=== PATIENT | male | born 1940 | race Caucasian/White ===

== ENCOUNTER → 2017-09-24 | Outpatient (CLI) | payer MEDICARE ==
[~2017-09-24] MED LIST: ACETAMINOPHEN-1 EAC1; ALBUTEROL2.5 MG/3 M IH; ASPIR 8181 MG PO; ATIVAN1 MG PO; CALCIUM PO; CENTRUM SILVER1 EAC2 PO; EFFEXOR XR75 MG PO; FLOMAX0.4 MG PO; GABAPENTIN 100100 MG PO; GABAPENTIN PO; GLUCOSAMINE HC500 MG PO; HYDROXYCHLOROQ200 M1 PO; IBUPROFEN 200200 M1 PO; LEVAQUIN 500 M500 M1 PO; LEVSIN0.125 MG PO; LEXAPRO 10 MG T10 M1 PO; METHOTREXATE 22.5 MG PO; METHYLPHENIDATE10 M1 PO; MIRTAZAPINE30 M1 PO; MOBIC15 MG PO; NEURONTIN 300300 M1 PO; NORCO 5-325 TA1 EACH PO; PAXIL10 MG; PERCOCET PO; PHENAZOPYRIDIN200 M2 PO; PREDNISONE 10 M10 MG PO; PREDNISONE 20 M20 M1 PO; PRIMIDONE50 MG PO; PROPRANOLOL 1010 M1 PO; PROTONIX40 M1 PO; PROZAC20 MG PO; RESTORIL15 MG PO; SENNA PO; TESSALON PERLE100 MG PO; TOPAMAX 25 MG T25 M1 PO; TRAMADOL 50 MG50 MG PO; UNICOMPLEX M TA1 TA1 PO; VICODIN 5-3001 EACH PO; WELLBUTRIN XL300 MG PO; ZOFRAN ODT4 MG PO; ZPAK PO; ZYPREXA 5 MG TAB5 M1 PO
== END ==
LOC: M.MRI 13:07
DX: G47.00 Insomnia, unspecified (principal); F41.9 Anxiety disorder, unspecified; K21.9 Gastro-esophageal reflux disease without esophagitis

== ENCOUNTER 2017-12-06 18:23 | Emergency (ER) | payer MEDICARE ==
[~2017-12-06] VITALS: Ht 177.8 cm; Wt 86.2 kg
[~2017-12-06 18:23] MED LIST changes: -CALCIUM PO; -LEVSIN0.125 MG PO; -LEXAPRO 10 MG T10 M1 PO; -METHYLPHENIDATE10 M1 PO; -NEURONTIN 300300 M1 PO; -NORCO 5-325 TA1 EACH PO; -PHENAZOPYRIDIN200 M2 PO; -PRIMIDONE50 MG PO; -PROPRANOLOL 1010 M1 PO; -PROZAC20 MG PO; -TOPAMAX 25 MG T25 M1 PO; -UNICOMPLEX M TA1 TA1 PO; -WELLBUTRIN XL300 MG PO; -ZYPREXA 5 MG TAB5 M1 PO
[2017-12-06] MEDS ORDERED: PROZAC20 MG PO (18:41)
[2017-12-06] MEDS ORDERED: PRIMIDONE50 MG PO (18:41)
[2017-12-06] MEDS ORDERED: NEURONTIN 300300 M1 PO (18:41)
[2017-12-06] MEDS ORDERED: WELLBUTRIN XL300 MG PO (18:41)
[2017-12-06] MEDS ORDERED: ZYPREXA 5 MG TAB5 M1 PO (18:42)
[2017-12-06 20:39] VITALS: BP 129/83
== END 2017-12-06 20:30 | disposition home or self-care (01) ==
LOC: M.ERS 18:23
DX: S22.32XA Fracture of one rib, left side, initial encounter for closed fracture (principal); Z77.22 Contact with and (suspected) exposure to environmental tobacco smoke (acute) (chronic); W18.39XA Other fall on same level, initial encounter; Y93.89 Activity, other specified; Y92.89 Other specified places as the place of occurrence of the external cause; Y99.8 Other external cause status

== ENCOUNTER → 2017-12-27 | Outpatient (CLI) | payer MEDICARE ==
[~2017-12-27] MED LIST changes: +CALCIUM PO; +LEVSIN0.125 MG PO; +LEXAPRO 10 MG T10 M1 PO; +METHYLPHENIDATE10 M1 PO; +NEURONTIN 300300 M1 PO; +NORCO 5-325 TA1 EACH PO; +PHENAZOPYRIDIN200 M2 PO; +PRIMIDONE50 MG PO; +PROPRANOLOL 1010 M1 PO; +PROZAC20 MG PO; +TOPAMAX 25 MG T25 M1 PO; +UNICOMPLEX M TA1 TA1 PO; +WELLBUTRIN XL300 MG PO; +ZYPREXA 5 MG TAB5 M1 PO
--- NOTE | 2017-12-27 15:26 | 2DMMODE ---
[place] [address] 2 D/M-MODE ECHOCARDIOGRAM Name: AB EASON Room: [facility]#: [id number] Admission: 12/27/17 Attend Phys: Butch Milligan Discharge: Date of : 44 Date of Service: 12/27/17 1526 Report #: [id number] THIS REPORT FOR: //name// APPROVED REPORT Study performed: 12/27/2017 14:17:01 EXAM: Comprehensive 2D, Doppler, and color-flow Echocardiogram Patient Location: Out-Patient Status: routine BSA: 2.07 HR: 75 bpm BP: 120/80 mmHg Other Information Study Quality: Good Indications Murmur 2D Dimensions LVEF(%): 56.77 (>50%) IVSd: 13.30 (7-11mm) LVOT Diam: 20.00 (18-24mm) LVDd: 36.25 mm PWd: 10.90 (7-11mm) Ascending Ao: 28.84 (22-36mm) LVDs: 25.71 (25-40mm) Aortic Root: 28.02 mm Cunningham's LVEF: 56.77 % Volumes Left Atrial Volume (Systole) LA ESV Index: 9.90 mL/m2 Aortic Valve AoV Peak Dimitri.: 0.98 m/s AO Peak Gr.: 3.82 mmHg LVOT Max P.79 mmHg AO Mean Gr.: 2.08 mmHg LVOT Mean P.83 mmHg LVOT Max V: 0.97 m/s AO V2 VTI: 17.69 cm LVOT Mean V: 0.62 m/s MARAH (VTI): 3.61 cm2 LVOT V1 VTI: 20.32 cm Mitral Valve E/A Ratio: 0.64 MV Decel. Time: 292.14 [place] [address] 2 D/M-MODE ECHOCARDIOGRAM Name: AB EASON Room: [facility]#: [id number] Admission: 12/27/17 Attend Phys: Butch Milligan Discharge: Date of : 44 Date of Service: 12/27/17 1526 Report #: [id number] MV E Max Dimitri.: 0.43 m/s MV PHT: 84.72 ms MVA (PHT): 2.60 cm2 TDI E/Lateral E': 6.14 E/Medial E': 6.14 Medial E' Dimitri.: 0.07 m/s Lateral E' Dimitri.: 0.07 m/s Pulmonary Valve PV Peak Dimitri.: 1.31 m/s PV Peak Gr.: 6.84 mmHg Tricuspid Valve TR Peak Gr.: 19.87 mmHg RVSP: 24.87 mmHg Left Ventricle The left ventricle is normal size. There is normal LV segmental wall motion. There is normal left ventricular wall thickness. Left ventricular systolic function is normal. The left ventricular ejection fraction is within the normal range. LVEF is 55-60%. Grade I - abnormal relaxation pattern. Right Ventricle The right ventricle is normal size. The right ventricular systolic function is normal. Atria The left atrium size is normal. The right atrium size is normal. Aortic Valve Aortic valve is mildly calcified. Mild aortic regurgitation. There is no aortic valvular stenosis. Mitral Valve The mitral valve is normal in structure. Mild mitral regurgitation. No evidence of mitral valve stenosis. Tricuspid Valve The tricuspid valve is normal in structure. Mild tricuspid regurgitation. The RVSP is 30_ mmHg. Pulmonic Valve The pulmonary valve is normal in structure. There is no pulmonic [place] [address] 2 D/M-MODE ECHOCARDIOGRAM Name: AB EASON [id number] Admission: 12/27/17 Attend Phys: Butch Milligan Discharge: Date of : 44 Date of Service: 12/27/17 1526 Report #: [id number] Great Vessels The aortic root is normal in size. IVC is normal in size and collapses with >50% inspiration Pericardium There is no pericardial effusion. <Conclusion> Aortic valve is mildly calcified. Mild mitral regurgitation. Mild aortic regurgitation. LVEF is 55-60%. <ELECTRONICALLY SIGNED> By: Cain Schaeffer MD, FACC 12/27/17 1526 1526 1526 Cain Schaeffer MD, FACC /INF
== END ==
LOC: M.CRD 13:29
DX: I08.3 Combined rheumatic disorders of mitral, aortic and tricuspid valves (principal); I70.0 Atherosclerosis of aorta

== ENCOUNTER → 2018-03-31 | Outpatient (CLI) | payer MEDICARE | LOC: M.ULTRA 12:26 | DX: M79.89 Other specified soft tissue disorders (principal); M79.661 Pain in right lower leg; M79.662 Pain in left lower leg ==

== ENCOUNTER 2018-05-13 09:03 | Inpatient (IN) | payer MEDICARE ==
[~2018-05-13] VITALS: Ht 177.8 cm; Wt 90.7 kg
[~2018-05-13 09:03] MED LIST changes: -CALCIUM PO; -LEVSIN0.125 MG PO; -LEXAPRO 10 MG T10 M1 PO; -METHYLPHENIDATE10 M1 PO; -NORCO 5-325 TA1 EACH PO; -PHENAZOPYRIDIN200 M2 PO; -PROPRANOLOL 1010 M1 PO; -TOPAMAX 25 MG T25 M1 PO; -UNICOMPLEX M TA1 TA1 PO
[2018-05-13 09:13] VITALS: BP 130/110
[2018-05-13 09:44] LABS: ABSOLUTE LYMPHOCYTES 1.4 thou/uL (0.8-5.3); ABSOLUTE MONOCYTES 0.9 thou/uL (0.0-1.2); ABSOLUTE NEUTROPHILS 7.2 thou/uL (1.6-8.1); BASOPHILS 0.4 %; EOSINOPHILS 0.2 %; HEMATOCRIT 46.2 % (42.0-52.0); HEMOGLOBIN 15.6 gm/dL (14.0-18.0); LYMPHOCYTES 14.2 %; MCH 31.6 pg (26.0-34.0); MCHC 33.9 g/dL (28.0-37.0); MCV 93.5 fL (80.0-100.0); MONOCYTES 9.9 %; NUCLEATED RBCS 0 /100WBC; PLATELET COUNT* 191 thou/uL (150-400); POLYS 75.3 %; RBC 4.94 mil/uL (4.50-6.00); RDW-CV 13.7 % (10.5-14.5); WBC 9.6 thou/uL (4.0-11.0)
[2018-05-13 09:45] LABS: URINE BILIRUBIN NEGATIVE (Negative); URINE BLOOD 1+ (Negative); URINE CLARITY CLEAR; URINE COLOR YELLOW; URINE GLUCOSE-RANDOM NEGATIVE (Negative); URINE KETONES NEGATIVE (Negative); URINE LEUKOCYTES-REFLEX NEGATIVE (Negative); URINE NITRITE-REFLEX NEGATIVE (Negative); URINE PROTEIN NEGATIVE (Negative); URINE UROBILINOGEN 0.2 E.U./dl (0.2-1.0)
[2018-05-13 09:56] LABS: ANION GAP 8 mmol/L (7-16); BUN 25 mg/dL (7-18); CALCIUM 9.7 mg/dL (8.5-10.1); CHLORIDE 106 mmol/L (98-107); CO2 27 mmol/L (21-32); CREATININE 2.2 mg/dL (0.6-1.3); GLUCOSE 151 mg/dL (70-99); POTASSIUM 3.8 mmol/L (3.5-5.1); SODIUM 141 mmol/L (136-145)
[2018-05-13] MEDS ORDERED: LEXAPRO 10 MG T10 M1 PO (09:59)
[2018-05-13] MEDS ORDERED: TOPAMAX 25 MG T25 M1 PO (10:01)
[2018-05-13 10:02] LABS: ALBUMIN 3.6 g/dL (3.4-5.0); ALKALINE PHOSPHATASE 68 U/L (46-116); LIPASE 259 U/L (73-393); SGOT 19 U/L (15-37); SGPT 30 U/L (30-65); TOTAL PROTEIN 6.8 g/dL (6.4-8.2); TROPONIN-I LEVEL <0.06 ng/mL (<0.06)
[2018-05-13] MEDS ORDERED: PROPRANOLOL 1010 M1 PO (10:02)
[2018-05-13] MEDS ORDERED: CALCIUM PO (10:03)
[2018-05-13] MEDS ORDERED: UNICOMPLEX M TA1 TA1 PO (10:03)
[2018-05-13] MEDS ORDERED: ASPIR 8181 MG PO (10:04)
[2018-05-13] MEDS ORDERED: METHYLPHENIDATE10 M1 PO (10:04)
[2018-05-13 14:13] VITALS: BP 137/83
--- NOTE | 2018-05-13 16:31 | EKG ---
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 DAVEY : 1940 Requested By: Rufino Matias Order Number: [id number] MD: Getachew Jain Measurements Intervals Ringle Rate: 87 P: 44 VT: 152 QRS: -37 QRSD: 99 T: 19 QT: 384 QTc: 462 Interpretive Statements Sinus rhythm Ventricular premature complex Left axis deviation Compared to ECG 05/28/2016 12:26:51 Ventricular premature complex(es) now present Electronically Signed On 05-13-2018 16:31:35 CDT by Getachew Jain [email or web address] <ELECTRONICALLY SIGNED> By: Getachew Jain MD, [facility] 05/13/18 1631 0914 Getachew Jain MD, [facility] /EPI
--- NOTE | 2018-05-13 18:05 | NUR ---
PATIENT ARRIVED TO THE UNIT AT APPROX 1500. ALERT AND ORIENTE X4. ADMISSION HISTORY AND ASSESSMENT COMPLETED AND CHARTED. VSS ON ROOM AIR. NO COMPLAINTS OF PAIN, NAUSEA, OR SOA. FLUIDS STARTED AND INFUSING ORDERED. URINAL AND STRAINER PLACED IN RESTROOM TO MONITOR FOR STONE. HOURLY ROUNDS MAINTAINED, CALL LIGHT WITHIN REACH, NURSING WILL CONTINUE TO MONITOR.
[2018-05-13 19:56] LABS: CALCIUM 9.4 mg/dL (8.5-10.1); CREATININE 2.4 mg/dL (0.6-1.3); POTASSIUM 3.9 mmol/L (3.5-5.1)
[2018-05-13 20:30] VITALS: BP 112/72
[2018-05-14 00:41] VITALS: BP 114/76
[2018-05-14 04:36] LABS: HEMATOCRIT 39.4 % (42.0-52.0); MCHC 34.1 g/dL (28.0-37.0); MCV 93.7 fL (80.0-100.0); MPV 7.2 fl. (7.2-11.1); RBC 4.2 mil/uL (4.50-6.00); RDW-CV 13.8 % (10.5-14.5)
[2018-05-14 04:49] LABS: ALBUMIN 2.8 g/dL (3.4-5.0); CALCIUM 8.5 mg/dL (8.5-10.1); CREATININE 2.4 mg/dL (0.6-1.3); POTASSIUM 4.3 mmol/L (3.5-5.1); TOTAL BILIRUBIN 0.7 mg/dL (<0.1-1.0); TOTAL PROTEIN 5.1 g/dL (6.4-8.2)
[2018-05-14 05:14] LABS: HEMOGLOBIN 13.4 gm/dL (14.0-18.0)
--- NOTE | 2018-05-14 08:14 | NUR ---
Alert and oriented x 4. Vitals are stable. He is up independently in his room. He was voiding and straining his urine himself. He has had nothing by mouth since midnight. He slept well.
[2018-05-14 08:30] VITALS: BP 128/80
--- NOTE | 2018-05-14 11:27 | NUR ---
PATIENT ARRIVED BACK TO UNIT FROM PACU AT 1120. VITAL SIGNS STABLE ON ROOM AIR. DENIES PAIN AND NAUSEA. REGULAR DIET STARTED. DRESSING TO PENIS/SCROTAL AREA C/D/I. RESTING COMFORTABLY. WILL CONTINUE HOURLY ROUNDS. CALL LIGHT WITHIN REACH. NURSING WILL CONTINUE TO MONITOR.
[2018-05-14 16:00] VITALS: BP 132/66
--- NOTE | 2018-05-14 17:19 | NUR ---
PATIENT ALERT AND ORIENTED X 4. VITAL SIGNS STABLE ON ROOM AIR. UP AD YOKASTA IN ROOM. IV PATENT WITH FLUIDS INFUSING. DENIES PAIN AND NAUSEA. PATIENT HAD CYSTOSCOPY TODAY WITH LEFT RETROGRADE PYELOGRAM & URETEROSCOPY WITH STONE EXTRACTION & STENT PLACEMENT. URINE IS BLOOD TINGED DUE TO PROCEDURE. VOIDING WITHOUT DIFFICULTY. HOURLY ROUNDS MAINTAINED THROUGHOUT THE SHIFT. CALL LIGHT WITHIN REACH. NURSING WILL CONTINUE TO MONITOR.
[2018-05-14 21:30] VITALS: BP 127/82
[2018-05-15 04:21] LABS: HEMATOCRIT 37.1 % (42.0-52.0); HEMOGLOBIN 12.7 gm/dL (14.0-18.0); MCHC 34.3 g/dL (28.0-37.0); MCV 93.4 fL (80.0-100.0); MPV 7.2 fl. (7.2-11.1); RBC 3.97 mil/uL (4.50-6.00); RDW-CV 14.1 % (10.5-14.5); WBC 5.4 thou/uL (4.0-11.0)
[2018-05-15 04:44] LABS: ALBUMIN 2.6 g/dL (3.4-5.0); CALCIUM 7.8 mg/dL (8.5-10.1); CREATININE 1.8 mg/dL (0.6-1.3); MAGNESIUM 1.9 mg/dL (1.8-2.4); POTASSIUM 3.9 mmol/L (3.5-5.1); TOTAL BILIRUBIN 0.4 mg/dL (<0.1-1.0); TOTAL PROTEIN 5.3 g/dL (6.4-8.2)
--- NOTE | 2018-05-15 08:31 | NUR ---
ALERT AND ORIENTED X4. DENIED NEED FOR PAIN MEDICATIONS. UP AD YOKASTA IN ROOM. URINE BROWN IN COLOR. PATIENT VOIDING WITHOUT DIFFICULTY. CONTINUE TO STRAIN ALL URINE. IVF INFUSING WITHOUT DIFFICULTY. CALL LIGHT WITHIN REACH.
--- NOTE | 2018-05-15 08:35 | CON ---
[address] [address] CONSULTATION Name: AB EASON Room: [address] IN ..#: [id number] Admission: 05/13/18 Attend Phys: Agapito Mendoza, Discharge: Date of : 44 Report #: [id number] THIS REPORT FOR: //name// CC: Agapito Mendoza Butch Wooo DATE OF SERVICE: 05/14/2018 NEPHROLOGY CONSULTATION CONSULTING PHYSICIAN: Dr. Mendoza. REASON FOR NEPHROLOGY CONSULTATION: Acute kidney injury. CHIEF COMPLAINT: Left lower quadrant and flank pain. HISTORY OF PRESENT ILLNESS: This is a very pleasant 77-year-old male who has past medical history of kidney stones. He takes Topamax for neuropathy and he states that he was started on that 5 months ago. He came in with left flank pain and left-sided abdominal pain. He denied any dysuria. Abdominal imaging showed evidence of a 3-mm left UPJ stone causing moderate obstructive uropathy with left-sided hydronephrosis and perinephric stranding. He also has bilateral stone burden, which were like small in nature. His creatinine was 1.1 in 2016, but creatinine at this time was 2.2 on admission and 2.4 this morning as well as rest of the evening. Urology has already seen him. He does take ibuprofen intermittently. He does not take any MARCIO inhibitor or ARB. He also had an episode of nausea and vomiting yesterday, but his symptoms are much better today. His urine output has not been documented. He is actually resting comfortably right now. ALLERGIES: No known drug allergies. REVIEW OF SYSTEMS: This is as mentioned in the history of present illness. He is currently not having any pain, nausea, vomiting or diarrhea. PAST MEDICAL HISTORY: Includes history of kidney stones in the past. He has neuropathy. He has history of psychosis, history of suicidal ideation and depression. PAST SURGICAL HISTORY: He denied any hip surgeries. FAMILY HISTORY: He denied any kidney disease in the family. He did say that his brother has history of kidney stones. SOCIAL HISTORY: He lives at home with his . Denies any use of tobacco, [place] [address] CONSULTATION Name: AB EASON Room: [address]#: [id number] Admission: 05/13/18 Attend Phys: Agapito Mendoza, Discharge: Date of : 44 Report #: [id number] HOME MEDICATIONS: Include Topamax 25 mg b.i.d., primidone, olanzapine, methotrexate, propranolol, aspirin 81, gabapentin, fluoxetine, bupropion, escitalopram, methylphenidate, lorazepam, multivitamins and calcium supplement. PHYSICAL EXAMINATION: VITAL SIGNS: Blood pressure is 114/76, respiratory rate is 18, pulse rate is 78, temperature 36.8 and pulse ox is 98% on room air. GENERAL: He is awake, alert and oriented x 3. HEAD, EYES, EARS, NOSE AND THROAT: Mucous membranes are moist. NECK: There is no JVD. CHEST: Clear to auscultation bilateral. No crackles or wheezing. CARDIOVASCULAR: S1, S2 normal. No murmurs, rubs or gallops. ABDOMEN: Soft, nondistended and nontender. Bowel sounds are present. BACK: He has no CVA tenderness. EXTREMITIES: Lower extremities, there is no edema. NEUROLOGICAL FUNCTION: Gross neurological function is intact. PSYCHIATRIC: Mood and affect seem to be normal. LABORATORY DATA: Hemoglobin 13.4, WBC 7.0. Creatinine 2.4, BUN 29, chloride 111 and sodium 144. Creatinine was 2.2 yesterday morning and other labs are reviewed. IMAGING: Chest x-ray, abdominal x-ray and abdominal and pelvic CT were reviewed. ASSESSMENT: 1. Acute kidney injury, likely because of obstructive uropathy. Baseline creatinine 1.1, but creatinine is now 2.4. U/A showed evidence of 1+ blood, but no protein. 2. Obstructive uropathy, left UPJ stone causing left hydronephrosis and perinephric stranding as well as bilateral stone burden. 3. History of neuropathy and takes Topamax for that. 4. History of psychosis and depression. PLAN: 1. Acute kidney injury is likely because of obstructive uropathy. I agree with Urology's plan for urological intervention for stone retrieval and possible stent placement. 2. Continue IV fluids with normal saline at 100 mL an hour. 3. Based upon his age and renal insufficiency, we will also check serum immunofixation and serum jodbi-dy-xgrmmu light chain ratio. 4. Agree with Neurology. Topamax causes increased stone burden and would recommend speaking with Neurology to see if Topamax can be tapered down to off. Thank you for the consultation. Please make sure [place] [address] CONSULTATION Name: AB EASON Room: [address] IN .R.#: [id number] Admission: 05/13/18 Attend Phys: Agapito Mendoza, Discharge: Date of : 44 Report #: [id number] documented. I discussed the plan with the patient as well as the patient's nurse and we will continue to follow with you. <ELECTRONICALLY SIGNED> By: Celina Munguia MD 05/15/18 0835 1340Celina Munguia MD /nt
[2018-05-15 09:41] VITALS: BP 126/75
--- NOTE | 2018-05-15 14:29 | OP ---
[address] [address] OPERATIVE REPORT Name: AB EASON Room: [address] IN .R.#: [id number] Admission: 05/13/18 Attend Phys: Agapito Mendoza, Discharge: Date of : 44 Report #: [id number] THIS REPORT FOR: //name// CC: Agapito Milligan DATE OF SERVICE: 05/14/2018 PREOPERATIVE DIAGNOSES: 1. Ureteral stone. 2. Renal stone. 3. Renal failure due to ureteral obstruction. POSTOPERATIVE DIAGNOSES: 1. Ureteral stone. 2. Renal stone. 3. Renal failure due to ureteral obstruction. PROCEDURE PERFORMED: Cystoscopy, left retrograde pyelogram, ureteroscopy, stone extraction and stent placement. SURGEON: Aaron Bonds MD. ANESTHESIA: General. ESTIMATED BLOOD LOSS: Minimal. COMPLICATIONS: None. INDICATION FOR PROCEDURE: This is a 77-year-old gentleman who was hospitalized for severe flank pain. He had a CT scan, which revealed a distal left ureteral stone, hydronephrosis and several renal stones. His creatinine was also elevated indicating some renal failure. His options for management were discussed in detail. He elected to proceed with cystoscopy, left retrograde pyelogram, ureteroscopy, laser lithotripsy and stent placement. The risks, benefits, possible complications were explained in detail to both he and his family. They voiced clear understanding and would like to proceed. DESCRIPTION OF PROCEDURE: After obtaining informed consent, the patient was taken to the operating room and placed in supine position. After adequate general anesthesia and IV antibiotics, he was prepped and draped in the dorsal lithotomy position. A 21-Spanish cystoscope with 30-degree lens was introduced into the anterior urethra, which was normal all the way down the prostatic urethra with moderate prostatic enlargement. Upon entering the bladder, the bladder was systematically inspected. There were no tumors or diverticula. There was a small 1-mm fragment of stone at the base. This [place] [address] OPERATIVE REPORT Name: AB EASON Room: [address] IN ..#: [id number] Admission: 05/13/18 Attend Phys: Agapito Mendoza, Discharge: Date of : 44 Report #: [id number] It did not appear to match the size of the stone in his ureter visualized on CT, so a left retrograde pyelogram was performed using an open-ended ureteral catheter. There was a very stenotic appearing intramural ureter with a significant amount of proximal hydroureter. There is a possible filling defect in the distal ureter, so a sensor guidewire was passed in retrograde fashion. In doing so hydronephrotic jet expelled another piece of stone. This was flushed out of the bladder. Rigid ureteroscopy was carried out alongside the wire. No visible stones were identified within the distal ureter. So, an access sheath was gently passed over the wire under fluoroscopic guidance. This was an 11 x 13-Spanish access sheath. It passed quite easily. A second wire was placed as a safety wire and flexible ureteroscopy was carried out up into the kidney. All the calices were inspected. There were 3 separate stones ranging from 2 mm to 4 mm. These were basketed and retrieved atraumatically through the dilated proximal ureter and access sheath. The remainder of the kidney was inspected. There were several small Juan Manuel's plaques, but no other stones within the collecting system. The access sheath was removed. The ureter was inspected with removal of the ureteroscope. There was no evidence of any ureteral injury. No evidence of any stones within the ureter. There was some edema in the distal ureter where the stone had been lodged. It was determined that a stent would be replaced. The cystoscope was placed in the bladder and a 4.8 x 28 cm double-J stent was passed in retrograde fashion. A good coil was noted overlying the renal pelvis. A good coil was directly visualized in the bladder. Bladder was drained. Uro-Jet was applied per urethra. The patient was extubated and taken to recovery room in good condition. The plan is to return his care to the floor and check his creatinine. When stable, he can discharge home and follow up in 1-2 weeks for stent removal. <ELECTRONICALLY SIGNED> By: Aaron Bonds MD 05/15/18 1429 1800 [id number] Bonds MD /susan
[2018-05-15 16:28] VITALS: BP 152/89
--- NOTE | 2018-05-15 16:57 | NUR ---
ASSUMED CARE OF PATIENT AFTER MORNING REPORT AT APPROX 0730. ALERT AND ORIENTED X4. ASSESSMENT COMPLETED AND CHARTED. VSS ON ROOM AIR. NO COMPLAINTS OF PAIN, NAUSEA, OR SOA. FLUIDS INFUSED ORDERED. PATIENT WAITING TO BE DISCHARGED, DR PARRY ORDERED NEURO CONSULT TO ADDRESS MEDICATION, NEPHROLOGY SUGGESTS TOMAMAX IS CAUSING KIDNEY STONES. PATIENT IN RECLINER WATCHIGN TV AT THIS TIME. HOURLY ROUNDS MAINTAINED, CALL LIGHT WITHIN REACH, NURSING WILL CONTINUE TO MONITOR.
[2018-05-15] MEDS ORDERED: NORCO 5-325 TA1 EACH PO (18:15)
[2018-05-15] MEDS ORDERED: LEVSIN0.125 MG PO (18:16)
[2018-05-15] MEDS ORDERED: PHENAZOPYRIDIN200 M2 PO (18:17)
[2018-05-15 18:46] VITALS: BP 152/89
--- NOTE | 2018-05-15 19:07 | NUR ---
PATIENT DISCHARGED AT 1900 WITH ALL PERSONAL BELONINGS, PRESCRIPTIONS, AND DISCHARGE INFORMATION.
[2018-05-15 21:08] LABS: IgA 165 mg/dL (61-437); IgG 715 mg/dL (700-1600); IgM 60 mg/dL (15-143)
[2018-05-16 12:05] LABS: KAPPA FREE LIGHT CHAINS 15.2 mg/L (3.3-19.4); LAMBDA FREE LIGHT CHAINS 18.7 mg/L (5.7-26.3)
--- NOTE | 2018-05-16 12:49 | CON ---
[address] [address] CONSULTATION Name: AB EASON Room: [address] IN ..#: [id number] Admission: 05/13/18 Attend Phys: Agapito Mendoza, Discharge: 05/15/18 Date of : 44 Report #: [id number] THIS REPORT FOR: //name// CC: Agapito Guardadozhou Chel DATE OF SERVICE: 05/13/2018 REFERRING PHYSICIAN: Dr. Mendoza. REASON FOR CONSULTATION: Left ureteral calculus and renal insufficiency. HISTORY OF PRESENT ILLNESS: This is a 77-year-old male who reports multiple stones in the past, but states they have not required procedures and have passed spontaneously. He denies previous urologic evaluation. He presented to the Emergency Department with a several-day history of left-sided abdominal and flank pain accompanied by nausea and vomiting. He denies fever or chills. He denies dysuria, gross hematuria or fragment passage. Denies hesitancy, slow stream or incomplete emptying. He denies any other recent illness. CT scan revealed a 3 mm left ureterovesical junction stone and lab revealed a creatinine of 2.2. He was admitted for further evaluation and management as well as hydration and Urology was consulted. PAST MEDICAL HISTORY: As above. The patient also has a history of depression and reported history of psychosis and suicidal ideation, though he denies these. ALLERGIES: No known drug allergies. MEDICATIONS: List is reviewed and includes Topamax. FAMILY HISTORY: He does not know of any family history of renal disease or stones. SOCIAL HISTORY: He denies use of tobacco or alcohol. REVIEW OF SYSTEMS: As per the history of present illness. He denies cough, shortness of breath, chest pain. 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 He is unsure of details regarding that. PHYSICAL EXAMINATION: VITAL SIGNS: Temperature 36.9, pulse 66, respirations 16, blood pressure 137/83. GENERAL: This is a 77-year-old male in no acute distress. He is awake, alert and answers questions appropriately. HEENT: Normocephalic, atraumatic. He has amblyopia. Oropharynx is clear. NECK: Supple[place] [address] CONSULTATION Name: EASONAB Nish Room: [address]#: [id number] Admission: 05/13/18 Attend Phys: Agapito Mendoza, Discharge: 05/15/18 Date of : 44 Report #: [id number] RESPIRATORY: Effort and excursion are normal. CARDIOVASCULAR: Rhythm is regular. Radial pulses are palpable. CHEST: Chest wall is nontender. ABDOMEN: Soft, nontender, nondistended. Spine and costovertebral angles are nontender. Bladder is nontender and nonpalpable. EXTREMITIES: Warm. Moves all extremities well. No peripheral edema. Radial pulses are palpable. GENITOURINARY: Reveals normal skin of the penis and scrotum. Urethral meatus is orthotopic. Left testicle is somewhat atrophic with no palpable masses. 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 No palpable inguinal hernias. LABORATORY DATA: Include a white count of 9.6, hemoglobin 15.6, platelet count 191,000. Sodium 141, potassium 3.8, chloride 106, CO2 of 27, BUN 25, creatinine 2.2, glucose 131. IMAGING: Noncontrast CT scan of the abdomen and pelvis reveals bilateral nonobstructing renal calculi and a 3 mm left ureterovesical junction calculus with hydronephrosis. Dipstick urinalysis reveals 1+ blood. It is otherwise unremarkable. I have ordered a urine culture. CT images were reviewed. Findings were discussed in detail with the patient and his . IMPRESSION: 1. Left distal ureteral calculus, bilateral renal calculi. 2. Renal insufficiency with creatinine of 2.2. ASSESSMENT AND PLAN: We discussed alternatives for management including medical expulsive therapy, outpatient extracorporeal shockwave lithotripsy, cystoscopy with retrograde pyelogram and stent placement as well as possible ureteroscopic stone manipulation. We discussed the implications of his elevated creatinine. I would recommend avoiding nephrotoxins such as Toradol. We will add Flomax. Strain urine for stones. Check a urine culture. Check KUB and chest x-ray. Repeat a BMP in the morning. The patient has eaten recently and will be made n.p.o. after midnight in case intervention is needed. Consider Neurology evaluation regarding stopping Topamax due to its association with increased stone risk. We will follow along. <ELECTRONICALLY SIGNED> By: Getachew Garcia MD 05/16/18 1249 1744 [id number] Garcia MD /susan
[2018-05-23 17:11] LABS: STONE CA OXALATE DIHYDRATE 35 % (()); STONE CA OXALATE MONOHYDRATE 55 % (()); STONE CALCIUM PHOSPHATE 10 % (()); STONE COLOR Tan (()); STONE WEIGHT 37.6 mg (())
== END 2018-05-15 19:00 | disposition home or self-care (01) | DRG 659 ==
LOC: M.ERS 09:03 → M.TBA-ER 12:18 → M.ORTHSURG 12:18
PROVIDERS: Family Medicine; Urology; ADMIT Family Medicine
DX: N13.2 Hydronephrosis with renal and ureteral calculous obstruction (principal); E43 Unspecified severe protein-calorie malnutrition; N13.0 Hydronephrosis with ureteropelvic junction obstruction; K21.9 Gastro-esophageal reflux disease without esophagitis; N17.0 Acute kidney failure with tubular necrosis; Z77.22 Contact with and (suspected) exposure to environmental tobacco smoke (acute) (chronic); F32.9 Major depressive disorder, single episode, unspecified; F41.9 Anxiety disorder, unspecified; G62.9 Polyneuropathy, unspecified; Z98.41 Cataract extraction status, right eye; Z82.49 Family history of ischemic heart disease and other diseases of the circulatory system; Z84.1 Family history of disorders of kidney and ureter; Z28.21 Immunization not carried out because of patient refusal

== ENCOUNTER 2018-05-17 16:06 | Inpatient (IN) | payer MEDICARE ==
[~2018-05-17] VITALS: Ht 177.8 cm; Wt 81.6 kg
[~2018-05-17 16:06] MED LIST changes: +CALCIUM PO; +LEVSIN0.125 MG PO; +LEXAPRO 10 MG T10 M1 PO; +METHYLPHENIDATE10 M1 PO; +NORCO 5-325 TA1 EACH PO; +PHENAZOPYRIDIN200 M2 PO; +PROPRANOLOL 1010 M1 PO; +TOPAMAX 25 MG T25 M1 PO; +UNICOMPLEX M TA1 TA1 PO
[2018-05-17 16:18] VITALS: BP 119/82
[2018-05-17 16:39] LABS: ABSOLUTE EOSINOPHILS 0.3 thou/uL (0.0-0.7); ABSOLUTE LYMPHOCYTES 1.9 thou/uL (0.8-5.3); ABSOLUTE MONOCYTES 0.6 thou/uL (0.0-1.2); ABSOLUTE NEUTROPHILS 2.8 thou/uL (1.6-8.1); BASOPHILS 0.8 %; EOSINOPHILS 5.6 %; HEMATOCRIT 41.3 % (42.0-52.0); HEMOGLOBIN 14.1 gm/dL (14.0-18.0); LYMPHOCYTES 33.5 %; MCH 31.8 pg (26.0-34.0); MCV 93.5 fL (80.0-100.0); MONOCYTES 10.1 %; MPV 7.2 fl. (7.2-11.1); NUCLEATED RBCS 0 /100WBC; PLATELET COUNT* 201 thou/uL (150-400); RBC 4.42 mil/uL (4.50-6.00); RDW-CV 14.3 % (10.5-14.5); WBC 5.5 thou/uL (4.0-11.0)
[2018-05-17 16:47] LABS: APTT 26.5 Seconds (25.0-31.3); PROTIME 10.5 Seconds (9.20-11.50)
[2018-05-17 16:54] LABS: CALCIUM 9.2 mg/dL (8.5-10.1); CREATININE 1.3 mg/dL (0.6-1.3); POTASSIUM 5.1 mmol/L (3.5-5.1)
[2018-05-17 16:59] LABS: ALBUMIN 3.5 g/dL (3.4-5.0); TOTAL BILIRUBIN 0.5 mg/dL (<0.1-1.0); TOTAL PROTEIN 6.5 g/dL (6.4-8.2)
[2018-05-17 18:05] VITALS: BP 130/82
[2018-05-17 18:30] VITALS: BP 133/76
[2018-05-18] VITALS: BP 141/86
[2018-05-18 06:50] LABS: URINE BILIRUBIN NEGATIVE (Negative); URINE BLOOD 3+ (Negative); URINE CLARITY SL CLOUDY; URINE COLOR RED; URINE GLUCOSE-RANDOM NEGATIVE (Negative); URINE KETONES NEGATIVE (Negative); URINE LEUKOCYTES-REFLEX 1+ (Negative); URINE NITRITE-REFLEX NEGATIVE (Negative); URINE PROTEIN TRACE (Negative); URINE UROBILINOGEN 0.2 E.U./dl (0.2-1.0)
[2018-05-18 07:02] LABS: BACTERIA-REFLEX 1-9 Few /HPF (None Seen); MUCUS 0-3 Light strn/LPF (None Seen); SQUAMOUS 0-3 Few /LPF (0-3); URINE RBC >20 Many /HPF (0-2); URINE WBC-REFLEX 6-15 Few /HPF (0-5)
[2018-05-18 07:03] LABS: CASTS None Seen /LPF (None Seen); CRYSTALS None Seen /LPF (None Seen)
[2018-05-18 08:25] VITALS: BP 142/85
[2018-05-18 10:31] VITALS: BP 142/85
[2018-05-18 12:27] LABS: CREATININE 1.4 mg/dL (0.6-1.3)
[2018-05-18 13:32] VITALS: BP 142/85
--- NOTE | 2018-05-19 10:04 | CON ---
[address] [address] CONSULTATION Name: AB EASON Room: [address] IN .#: [id number] Admission: 05/17/18 Attend Phys: Tavo Ellis Discharge: 05/18/18 Date of : 44 Report #: [id number] THIS REPORT FOR: //name// CC: Butch Hauser DATE OF SERVICE: 05/18/2018 CONSULTING PHYSICIAN: Quan Hauser DO REASON FOR CONSULTATION: Hematuria. HISTORY OF PRESENT ILLNESS: This is a 77-year-old gentleman who recently underwent left ureteroscopy and double-J stent placement for an obstructing kidney stone just about 5 days ago, was admitted with gross hematuria, which have become more pronounced, but without any clots. He was admitted and was having some left flank discomfort. He is now feeling well. He had a Bradley catheter placed and was started on some IV fluids. I was asked to see him for the hematuria. He presently has no complaints and has been seen by Urology and cleared for discharge today. REVIEW OF SYSTEMS: Constitutional, psych, heme, eyes, ENT, respiratory, cardiac, GI, , endocrine all negative except as documented above. PAST MEDICAL HISTORY: Nephrolithiasis, depression, anxiety, GERD. There is mention of a history of hypertension. MEDICATIONS: Reviewed. FAMILY HISTORY: Not pertinent in this 77-year-old gentleman. SOCIAL HISTORY: No tobacco. PHYSICAL EXAMINATION: VITAL SIGNS: Blood pressure 142/85, pulse 67, temperature 36.9. GENERAL: No acute distress. EYES: Open. EARS: Externally normal. CARDIOVASCULAR: Regular rate. LUNGS: No crackles. ABDOMEN: Soft. LYMPHATICS: No peripheral pitting edema. PSYCHIATRIC: Awake, alert. LABORATORY DATA: White cell count 5.5, hemoglobin 14.1, platelets 201. Sodium 141, potassium 5.1, chloride 106, bicarbonate 29, BUN 22, creatinine 1.3, [place] [address] CONSULTATION Name: AB EASON Room: [address]#: [id number] Admission: 05/17/18 Attend Phys: Tavo Ellis Discharge: 05/18/18 Date of : 44 Report #: [id number] glucose 109, calcium 9.2, albumin 3.5. ASSESSMENT: 1. Acute kidney injury. On 05/15/2018 creatinine was 1.8, 05/14/2018 creatinine was 2.4. It is now 1.3 and has been improving. This is in the setting of a kidney stone. In 05/2016, he had a creatinine of 1.1. 2. Hematuria, status post obstructing renal stone, which was removed and he had a left double-J stent placed. He has been seen by Urology. 3. Nephrolithiasis. He had a recent 3 mm stone, which was obstructing the left UVJ. He is status post left double-J stent. He was started on Topamax back in February and this is associated with calcium phosphate stones. He has already called the prescribing doctor to see if this can be changed to something else. PLAN: From my standpoint, the hematuria is likely related to the kidney stone and there is no additional workup needed from a renal standpoint at this time. Urology has seen him and he will follow up with them as an outpatient. We will check a creatinine today to ensure that it is stable and outpatient workup for kidney stone can be completed including a 24-hour urine. He can have this done at the urologist's office or follow up with us as an outpatient to have this completed. No other recommendations. Thank you for requesting my opinion in the care and management of this patient. I will sign off. <ELECTRONICALLY SIGNED> By: Sofia Fragoso MD 05/19/18 1004 1131 [id number] Fragoso MD /nt
== END 2018-05-18 14:00 | disposition home or self-care (01) | DRG 693 ==
LOC: M.ERS 16:06 → M.3W 17:15 → M.TBA-ER 17:15 → M.3W 18:17
PROVIDERS: Family Medicine; Internal Medicine Nephrology; Physician Assistant; ADMIT Internal Medicine
DX: N20.2 Calculus of kidney with calculus of ureter (principal); N17.0 Acute kidney failure with tubular necrosis; N18.4 Chronic kidney disease, stage 4 (severe); Z53.29 Procedure and treatment not carried out because of patient's decision for other reasons; I12.9 Hypertensive chronic kidney disease with stage 1 through stage 4 chronic kidney disease, or unspecified chronic kidney disease; K21.9 Gastro-esophageal reflux disease without esophagitis; Z77.22 Contact with and (suspected) exposure to environmental tobacco smoke (acute) (chronic); F32.9 Major depressive disorder, single episode, unspecified; F41.9 Anxiety disorder, unspecified; R31.0 Gross hematuria; N20.0 Calculus of kidney; Z87.442 Personal history of urinary calculi; Z79.899 Other long term (current) drug therapy; Z79.82 Long term (current) use of aspirin; Z80.8 Family history of malignant neoplasm of other organs or systems; Z90.49 Acquired absence of other specified parts of digestive tract; Z90.89 Acquired absence of other organs

== ENCOUNTER 2019-02-17 16:00 | Inpatient (IN) | payer MEDICARE ==
[~2019-02-17] VITALS: Ht 177.8 cm; Wt 80.7 kg
[~2019-02-17 16:00] MED LIST changes: -WELLBUTRIN XL300 MG PO
[2019-02-17 16:02] VITALS: BP 136/90
[2019-02-17 17:00] LABS: ABSOLUTE BASOPHILS 0.1 thou/uL (0.0-0.2); ABSOLUTE EOSINOPHILS 0.1 thou/uL (0.0-0.7); ABSOLUTE MONOCYTES 0.6 thou/uL (0.0-1.2); ABSOLUTE NEUTROPHILS 2.4 thou/uL (1.6-8.1); BASOPHILS 1.2 %; EOSINOPHILS 2.8 %; HEMATOCRIT 43.2 % (42.0-52.0); HEMOGLOBIN 14.5 gm/dL (14.0-18.0); LYMPHOCYTES 38.6 %; MCH 29.6 pg (26.0-34.0); MCHC 33.5 g/dL (28.0-37.0); MCV 88.4 fL (80.0-100.0); MONOCYTES 12.3 %; MPV 7.5 fl. (7.2-11.1); NUCLEATED RBCS 0 /100WBC; PLATELET COUNT* 197 thou/uL (150-400); POLYS 45.1 %; RBC 4.89 mil/uL (4.50-6.00); RDW-CV 14.4 % (10.5-14.5); WBC 5.2 thou/uL (4.0-11.0)
[2019-02-17 17:06] LABS: ANION GAP 7 mmol/L (7-16); BUN 25 mg/dL (7-18); CALCIUM 8.7 mg/dL (8.5-10.1); CHLORIDE 108 mmol/L (98-107); CO2 28 mmol/L (21-32); CREATININE 1.1 mg/dL (0.6-1.3); GLUCOSE 94 mg/dL (70-99); POTASSIUM 4.1 mmol/L (3.5-5.1); SODIUM 143 mmol/L (136-145)
[2019-02-17 17:07] LABS: APTT 28.8 Seconds (25.0-31.3); INR 1.1; PROTIME 10.8 Seconds (9.20-11.50)
[2019-02-17 17:22] LABS: ALBUMIN 3.4 g/dL (3.4-5.0); ALKALINE PHOSPHATASE 73 U/L (46-116); NT-PRO BRAIN NAT PEPTIDE 115 pg/mL (<300); SGOT 15 U/L (15-37); SGPT 24 U/L (30-65); TOTAL BILIRUBIN 0.5 mg/dL (<0.1-1.0); TOTAL PROTEIN 6.4 g/dL (6.4-8.2); TROPONIN-I LEVEL <0.06 ng/mL (<0.06)
[2019-02-17 18:49] LABS: URINE BILIRUBIN NEGATIVE (Negative); URINE BLOOD NEGATIVE (Negative); URINE CLARITY CLEAR; URINE COLOR YELLOW; URINE GLUCOSE-RANDOM NEGATIVE (Negative); URINE KETONES NEGATIVE (Negative); URINE LEUKOCYTES-REFLEX NEGATIVE (Negative); URINE NITRITE-REFLEX NEGATIVE (Negative); URINE PROTEIN NEGATIVE (Negative); URINE UROBILINOGEN 0.2 E.U./dl (0.2-1.0)
[2019-02-17 19:05] VITALS: BP 147/81
[2019-02-17 19:25] VITALS: BP 147/81
[2019-02-17 20:00] VITALS: BP 135/97
[2019-02-18] VITALS: BP 125/74
[2019-02-18 04:00] VITALS: BP 137/80
[2019-02-18 05:03] LABS: ALBUMIN 3.2 g/dL (3.4-5.0); ALKALINE PHOSPHATASE 65 U/L (46-116); ANION GAP 7 mmol/L (7-16); BUN 21 mg/dL (7-18); CALCIUM 9.1 mg/dL (8.5-10.1); CHLORIDE 109 mmol/L (98-107); CHOLESTEROL 144 mg/dL (<200); CO2 28 mmol/L (21-32); CREATININE 1.2 mg/dL (0.6-1.3); GLUCOSE 89 mg/dL (70-99); HDL CHOLESTEROL 49 mg/dL (>40); LDL CHOLESTEROL 82 mg/dL (<100); POTASSIUM 4.1 mmol/L (3.5-5.1); SGOT 13 U/L (15-37); SGPT 24 U/L (30-65); SODIUM 144 mmol/L (136-145); TC:HDL 2.9 Ratio (Not establshd); TOTAL BILIRUBIN 0.6 mg/dL (<0.1-1.0); TRIGLYCERIDE 65 mg/dL (<150); VLDL 13 mg/dL (<40)
[2019-02-18 05:21] LABS: SERUM ASSESSMENT CLEAR
[2019-02-18 08:00] VITALS: BP 161/92
[2019-02-18 11:30] VITALS: BP 128/81
[2019-02-18 16:00] VITALS: BP 119/79
[2019-02-18 20:00] VITALS: BP 122/77
[2019-02-19] VITALS: BP 112/69
[2019-02-19 02:05] LABS: GLYCOHEMOGLOBIN (HGB A1C) 5.4 % (4.8-5.6)
[2019-02-19 04:00] VITALS: BP 101/45
[2019-02-19 08:00] VITALS: BP 114/75
--- NOTE | 2019-02-19 10:14 | CON ---
[address] [address] CONSULTATION Name: AB EASON Room: [address] IN M.R.#: [id number] Admission: 02/17/19 Attend Phys: Tavo Ellis Discharge: Date of : 44 Report #: [id number] THIS REPORT FOR: //name// CC: Butch Hauser NEUROLOGY CONSULTATION HISTORY OF PRESENT ILLNESS: The patient is a 78-year-old male who yesterday became very dizzy. He was not feeling well when he went to physical therapy. He has a problem with his right heel and after he went to therapy, he became more unsteady. In fact, he had difficulty walking. He felt as though he was walking from one side to the other and sometimes even walking backwards. He felt as though he were drunk, although he does not drink. The patient denies ringing in his ears, difficulty with his hearing or ear pain. Yesterday, he also noticed sharp pain in his left shoulder that went down into his upper arm, lasting several seconds. He denies having weakness in one leg or another. In general, he just did not feel well when he walked. The patient relates a history of peripheral neuropathy. He has numbness and tingling in his hands and feet. He states that he has been to for this and no etiology for the neuropathy was found. He also has essential tremor and was referred to for deep brain stimulator, but he declined this treatment. PAST MEDICAL HISTORY: Peripheral neuropathy, essential tremor, gastroesophageal reflux, hernia, infarcted testicle, left eye strabismus. PAST SURGICAL HISTORY: Left eye surgery, vein ablation, right cataract with intraocular lens implant, bilateral knee replacement, left wrist surgery. MEDICATIONS: Aspirin 81 mg daily, atorvastatin 20 mg at bedtime, calcium 500 mg b.i.d., gabapentin 400 mg t.i.d., lorazepam 0.5 mg at bedtime, minocycline 100 mg b.i.d., multivitamin daily. ALLERGIES: None. PHYSICAL EXAMINATION: VITAL SIGNS: Review of vital signs; temperature is 36.6, pulse rate 66, respiratory rate 14, blood pressure 161/92, bedside pulse oximetry 96%. NEUROLOGIC: Cranial nerves II through XII are grossly intact with the exception of the left eye. The left lens is clouded and there is a left exophoria. Motor exam demonstrates symmetrical strength in all 4 extremities with tone and bulk normal. Reflexes are trace. Plantar responses are flexor. Coordination reveals intact [id number]. Gait was not tested. LABORATORY DATA: Hematology; white blood cell count 5.2, hemoglobin 14.5, [place] [address] CONSULTATION Name: AB EASON Room: [address]#: [id number] Admission: 02/17/19 Attend Phys: Tavo Ellis Discharge: Date of : 44 Report #: [id number] hematocrit 43.2. Urinalysis negative. Chemistry; sodium 141, potassium 4.1, chloride 109, carbon dioxide 28, BUN 21, creatinine 1.2, glucose 89. Liver functions unremarkable. Cholesterol normal. IMAGING STUDIES: CT scan of the head demonstrates no acute intracranial abnormalities. Chest x-ray, no acute process. IMPRESSION: This patient does have vertigo. He also has a headache and has had a headache for the past several days. This may be contributing to the vertigo; however, I have asked physical therapy to perform a bilateral Hernán maneuver since the vertigo was so intense. I have discontinued Tylenol as a treatment for the headache and if there are no contraindications, I would prefer the patient receive a Toradol injection. There are other medications that can be tried for the headache including intravenous Depakote and/or a small dose of intravenous steroids. If the vertigo persists, the patient will need an MRI of the brain without contrast to begin with. Thank you for your kind referral of the patient. <ELECTRONICALLY SIGNED> By: Sherrell Mcfadden DO 02/19/19 1014 1010 1113Sherrell Mcfadden DO /nt
[2019-02-19 11:41] VITALS: BP 128/83
[2019-02-19 15:51] VITALS: BP 114/71
[2019-02-20] VITALS: BP 134/85
[2019-02-20 04:00] VITALS: BP 108/56
[2019-02-20 08:21] VITALS: BP 126/78
[2019-02-20] MEDS ORDERED: DYNACIN100 MG PO (11:53)
[2019-02-20 12:00] VITALS: BP 105/72
--- NOTE | 2019-02-20 12:17 | EKG ---
[place] [address] ELECTROCARDIOGRAM REPORT Name: AB EASON Room: [address] ADM IN .R.#: [id number] Admission: 02/17/19 Attend Phys: Tavo Ellis Discharge: Date of : 44 Report #: [id number] THIS REPORT FOR: //name// [facility] ED Test Date: 2019-02-17 Test Time: 17:31:42 Pat Name: AB EASON Department: Room: [facility] Gender: M Senior Agricultural Assistant: CROW : 1940 Requested By: Jl Santa Order Number: [id number] MD: Getachew Jain Measurements Intervals [place] Rate: 69 P: 47 [place]: 154 QRS: -20 QRSD: 107 T: 71 QT: 419 QTc: 449 Interpretive Statements Sinus rhythm Borderline left axis deviation Compared to ECG 05/13/2018 09:14:45 Ventricular premature complex(es) no longer present Electronically Signed On 02-20-2019 12:16:48 CDT by Getachew Jain [email or web address] <ELECTRONICALLY SIGNED> By: Getachew Jain MD, [facility] 02/20/19 1216 1731 1731 Getachew Jain MD, [facility] /EPI
[2019-02-20] MEDS ORDERED: WELLBUTRIN XL300 MG PO (13:54)
[2019-02-20 14:56] VITALS: BP 105/72
== END 2019-02-20 15:47 | disposition home or self-care (01) | DRG 69 ==
LOC: M.ERS 16:00 → M.TBA-ER 17:42 → M.2W 17:42
PROVIDERS: Emergency Medicine Emergency Medical Services; ADMIT Internal Medicine
DX: G45.9 Transient cerebral ischemic attack, unspecified (principal); E44.0 Moderate protein-calorie malnutrition; K21.9 Gastro-esophageal reflux disease without esophagitis; Z96.1 Presence of intraocular lens; R26.9 Unspecified abnormalities of gait and mobility; Z77.22 Contact with and (suspected) exposure to environmental tobacco smoke (acute) (chronic); G62.9 Polyneuropathy, unspecified; Z96.653 Presence of artificial knee joint, bilateral; Z80.9 Family history of malignant neoplasm, unspecified; Z79.899 Other long term (current) drug therapy; Z79.82 Long term (current) use of aspirin; Z98.41 Cataract extraction status, right eye

== ENCOUNTER 2019-06-10 08:57 | Emergency (ER) | payer MEDICARE ==
[~2019-06-10] VITALS: Ht 177.8 cm; Wt 83.9 kg
[~2019-06-10 08:57] MED LIST changes: +ASPIRIN325 PO; +DYNACIN100 MG PO; +WELLBUTRIN XL300 MG PO
[2019-06-10] MEDS ORDERED: PROZAC 20 MG20 MG PO (09:13)
[2019-06-10 09:33] LABS: ABSOLUTE BASOPHILS 0.1 thou/uL (0.0-0.2); ABSOLUTE EOSINOPHILS 0.2 thou/uL (0.0-0.7); ABSOLUTE LYMPHOCYTES 2.2 thou/uL (0.8-5.3); ABSOLUTE MONOCYTES 0.6 thou/uL (0.0-1.2); ABSOLUTE NEUTROPHILS 2.8 thou/uL (1.6-8.1); BASOPHILS 1.3 %; EOSINOPHILS 4.2 %; HEMATOCRIT 47.8 % (42.0-52.0); HEMOGLOBIN 16.6 gm/dL (14.0-18.0); LYMPHOCYTES 37.2 %; MCH 31.4 pg (26.0-34.0); MCHC 34.7 g/dL (28.0-37.0); MCV 90.3 fL (80.0-100.0); MONOCYTES 9.8 %; MPV 7.2 fl. (7.2-11.1); NUCLEATED RBCS 0 /100WBC; PLATELET COUNT* 208 thou/uL (150-400); POLYS 47.5 %; RBC 5.29 mil/uL (4.50-6.00); RDW-CV 13.6 % (10.5-14.5); WBC 5.8 thou/uL (4.0-11.0)
[2019-06-10 09:42] LABS: PROTIME 10.7 Seconds (9.20-11.50)
[2019-06-10 09:53] LABS: CALCIUM 9.4 mg/dL (8.5-10.1); CREATININE 1.2 mg/dL (0.6-1.3); POTASSIUM 4.2 mmol/L (3.5-5.1)
[2019-06-10 10:04] LABS: TOTAL BILIRUBIN 0.9 mg/dL (<0.1-1.0); TOTAL PROTEIN 7.4 g/dL (6.4-8.2)
[2019-06-10 10:44] VITALS: BP 141/84
[2019-06-10] MEDS ORDERED: TYLENOL WITH CO1 TA1 PO (19:29)
--- NOTE | 2019-06-11 14:28 | EKG ---
[place] [address] ELECTROCARDIOGRAM REPORT Name: AB EASON Room: [facility]#: [id number] Admission: 06/10/19 Attend Phys: Discharge: 06/10/19 Date of : 44 Report #: [id number] THIS REPORT FOR: //name// [facility] ED Test Date: 2019-06-10 Test Time: 09:02:37 Pat Name: AB EASON Department: Room: Gender: M Attacher: : 1940 Requested By: Beulah García Order Number: [id number] MD: Dwayne Carbone Measurements Intervals [place] Rate: 69 P: 41 MD: 152 QRS: -24 QRSD: 97 T: 63 QT: 408 QTc: 437 Interpretive Statements Sinus rhythm Atrial premature complex Borderline left axis deviation Baseline wander in lead(s) V5 Compared to ECG 02/17/2019 17:31:42 Atrial premature complex(es) now present Electronically Signed On 06-11-2019 14:28:44 CROP ADJUSTER by Dwayne Carbone [email or web address] <ELECTRONICALLY SIGNED> By: Dwayne Carbone MD, [facility] 06/11/19 1428 1 Dwayne Carbone MD, [facility] /EPI
== END 2019-06-10 10:45 | disposition home or self-care (01) ==
LOC: M.ERS 08:57
PROVIDERS: Personal Emergency Response Attendant
DX: M62.830 Muscle spasm of back (principal); K21.9 Gastro-esophageal reflux disease without esophagitis; Z86.73 Personal history of transient ischemic attack (TIA), and cerebral infarction without residual deficits; Z77.22 Contact with and (suspected) exposure to environmental tobacco smoke (acute) (chronic)

== ENCOUNTER 2019-06-10 17:30 | Emergency (ER) | payer MEDICARE ==
[~2019-06-10] VITALS: Ht 177.8 cm; Wt 81.7 kg
[~2019-06-10 17:30] MED LIST changes: +PROZAC 20 MG20 MG PO
[2019-06-10] MEDS ORDERED: TYLENOL WITH CO1 TA1 PO (19:29)
[2019-06-10 20:00] VITALS: BP 131/89
== END 2019-06-10 20:01 | disposition home or self-care (01) ==
LOC: M.ERS 17:30
DX: S01.112A Laceration without foreign body of left eyelid and periocular area, initial encounter (principal); S80.212A Abrasion, left knee, initial encounter; K21.9 Gastro-esophageal reflux disease without esophagitis; Z96.653 Presence of artificial knee joint, bilateral; Z77.22 Contact with and (suspected) exposure to environmental tobacco smoke (acute) (chronic); W10.8XXA Fall (on) (from) other stairs and steps, initial encounter; Y93.89 Activity, other specified; Y92.89 Other specified places as the place of occurrence of the external cause; Y99.8 Other external cause status

== ENCOUNTER 2020-05-11 14:45 | Emergency (ER) | payer MEDICARE ==
[~2020-05-11] VITALS: Ht 177.8 cm; Wt 83.9 kg
[~2020-05-11 14:45] MED LIST changes: +TYLENOL WITH CO1 TA1 PO
[2020-05-11] MEDS ORDERED: VITAMIN C1000 MG PO (14:52)
[2020-05-11 15:20] LABS: ABSOLUTE BASOPHILS 0.1 thou/uL (0.0-0.2); ABSOLUTE EOSINOPHILS 0.1 thou/uL (0.0-0.7); ABSOLUTE LYMPHOCYTES 2.2 thou/uL (0.8-5.3); ABSOLUTE MONOCYTES 0.5 thou/uL (0.0-1.2); ABSOLUTE NEUTROPHILS 2.4 thou/uL (1.6-8.1); BASOPHILS 1.3 %; EOSINOPHILS 2.7 %; HEMATOCRIT 45.8 % (42.0-52.0); HEMOGLOBIN 15.7 gm/dL (14.0-18.0); LYMPHOCYTES 40.9 %; MCH 31.5 pg (26.0-34.0); MCHC 34.2 g/dL (28.0-37.0); MCV 92.2 fL (80.0-100.0); NUCLEATED RBCS 0 /100WBC; PLATELET COUNT* 238 thou/uL (150-400); POLYS 45.1 %; RBC 4.97 mil/uL (4.50-6.00); RDW-CV 13.2 % (10.5-14.5); WBC 5.3 thou/uL (4.0-11.0)
[2020-05-11 15:21] LABS: CALCIUM 9.5 mg/dL (8.5-10.1); CREATININE 1.4 mg/dL (0.6-1.3)
[2020-05-11 15:32] LABS: ALBUMIN 4.3 g/dL (3.4-5.0); MAGNESIUM 2.4 mg/dL (1.8-2.4); TOTAL BILIRUBIN 0.6 mg/dL (<0.1-1.0); TOTAL PROTEIN 7.9 g/dL (6.4-8.2)
[2020-05-11 18:06] VITALS: BP 124/79
--- NOTE | 2020-05-12 12:13 | EKG ---
[place] [address] ELECTROCARDIOGRAM REPORT Name: AB EASON Room: [facility]#: [id number] Admission: 05/11/20 Attend Phys: Discharge: 05/11/20 Date of : 44 Date of Service: 05/11/20 1449 Report #: [id number] THIS REPORT FOR: //name// [facility] ED Test Date: 2020-05-11 Test Time: 14:49:55 Pat Name: AB EASON Department: Room: Gender: Copy Editor: MA : 1940 Requested By: Jl Santa Order Number: [id number] MD: Cain Schaeffer Measurements Intervals [place] Rate: 82 P: 49 [place]: 152 QRS: -37 QRSD: 95 T: 45 QT: 380 QTc: 444 Interpretive Statements Sinus rhythm Left axis deviation Abnormal R-wave progression, late transition Compared to ECG 06/10/2019 09:02:37 Atrial premature complex(es) no longer present Electronically Signed On 05-12-2020 12:12:59 CDT by Cain Schaeffer [email or web address] <ELECTRONICALLY SIGNED> By: Cain Schaeffer MD, FACC 05/12/20 1212 1449 1449 Cain Schaeffer MD, [facility] /EPI
--- NOTE | 2020-05-12 12:14 | EKG ---
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 Supervisor: : 1940 Requested By: Jl Santa Order Number: [id number] MD: Cain Schaeffer Measurements Intervals [place] Rate: 71 P: 47 [place]: 154 QRS: -40 QRSD: 94 T: 50 QT: 397 QTc: 432 Interpretive Statements Sinus rhythm late transition Left axis deviation Baseline wander in lead(s) V6 Compared to ECG 05/11/2020 14:49:55 No significant changes Electronically Signed On 05-12-2020 12:13:59 CDT by Cain Schaeffer [email or web address] <ELECTRONICALLY SIGNED> By: Cain Schaeffer MD, FACC 05/12/20 1213 1648 1648 Cain Schaeffer MD, [facility] /EPI
== END 2020-05-11 18:07 | disposition home or self-care (01) ==
LOC: M.ERS 14:45
PROVIDERS: Emergency Medicine Emergency Medical Services
DX: R07.89 Other chest pain (principal); K21.9 Gastro-esophageal reflux disease without esophagitis; Z86.73 Personal history of transient ischemic attack (TIA), and cerebral infarction without residual deficits; Z77.22 Contact with and (suspected) exposure to environmental tobacco smoke (acute) (chronic)

== ENCOUNTER → 2020-06-14 | Outpatient (CLI) | payer MEDICARE ==
[~2020-06-14] MED LIST changes: +VITAMIN C1000 MG PO
== END ==
LOC: M.ULTRA 13:00
PROVIDERS: ATTEND Family Medicine
DX: R19.09 Other intra-abdominal and pelvic swelling, mass and lump (principal)

== ENCOUNTER → 2020-06-19 | Outpatient (CLI) | payer MEDICARE ==
[2020-06-19 10:19] LABS: CREATININE 1.3 mg/dL (0.6-1.3)
== END ==
LOC: M.LAB 09:57 → M.CT 11:30
PROVIDERS: ATTEND Family Medicine
DX: K57.30 Diverticulosis of large intestine without perforation or abscess without bleeding (principal); R19.09 Other intra-abdominal and pelvic swelling, mass and lump; N20.0 Calculus of kidney; N40.0 Benign prostatic hyperplasia without lower urinary tract symptoms; M51.37 Other intervertebral disc degeneration, lumbosacral region

== ENCOUNTER 2020-07-20 13:52 | Emergency (ER) | payer MEDICARE ==
[~2020-07-20] VITALS: Ht 177.8 cm; Wt 83.9 kg
[2020-07-20] MEDS ORDERED: KEFLEX500 M1 PO (14:54)
[2020-07-20 16:24] VITALS: BP 152/83
== END 2020-07-20 16:25 | disposition home or self-care (01) ==
LOC: M.ERS 13:52
DX: S01.112A Laceration without foreign body of left eyelid and periocular area, initial encounter (principal); K21.9 Gastro-esophageal reflux disease without esophagitis; Z79.82 Long term (current) use of aspirin; Z79.899 Other long term (current) drug therapy; W18.39XA Other fall on same level, initial encounter; Y93.89 Activity, other specified; Y92.89 Other specified places as the place of occurrence of the external cause; Y99.8 Other external cause status

== ENCOUNTER → 2020-10-03 | Outpatient (CLI) | payer MEDICARE ==
[~2020-10-03] MED LIST changes: +KEFLEX500 M1 PO
== END ==
LOC: M.ULTRA 10:30
PROVIDERS: ATTEND Family Medicine
DX: R19.09 Other intra-abdominal and pelvic swelling, mass and lump (principal); M79.89 Other specified soft tissue disorders

== ENCOUNTER → 2020-10-09 | Outpatient (CLI) | payer MEDICARE ==
[2020-10-09 11:33] LABS: CREATININE 1.1 mg/dL (0.6-1.3)
== END ==
LOC: M.LAB 11:02 → M.CT 13:30
PROVIDERS: ATTEND Family Medicine
DX: K57.30 Diverticulosis of large intestine without perforation or abscess without bleeding (principal); R19.09 Other intra-abdominal and pelvic swelling, mass and lump; R19.5 Other fecal abnormalities; K42.9 Umbilical hernia without obstruction or gangrene; M25.78 Osteophyte, vertebrae; M43.17 Spondylolisthesis, lumbosacral region; N40.1 Benign prostatic hyperplasia with lower urinary tract symptoms

== ENCOUNTER 2020-12-05 11:44 | Inpatient (IN) | payer MEDICARE ==
[~2020-12-05] VITALS: Ht 177.8 cm; Wt 85.9 kg
--- NOTE | ~2020-12-05 | CON ---
[address] [address] CONSULTATION Name: AB EASON Room: [address] IN M.R.#: [id number] Admission: 12/05/20 Attend Phys: Tavo Ellis Discharge: Date of : 44 Report #: [id number] THIS REPORT FOR: cc: Butch Milligan Vincent R. DO Khosla,Steve Suarez MD ~ DOC #: [id number] Steve Glaser MD DATE OF CONSULTATION: 12/05/2020 HISTORY OF PRESENT ILLNESS: This is a 80-year-old male patient who was seen by me for somewhat unusual history. Initially, it looked like the history was different, but the history I get is that he started having difficulty with ambulation 2-3 years ago. He thinks he became worse about 6 months ago. He went to his family doctor today who sent him to the emergency room. He has a history of neuropathy, but I am not sure how much workup has been done. He does have a tremor and he has evaluation at [facility], but I do not have any workup in that regard. He has a big bruise on his leg, but he does not know when it happened. REVIEW OF SYSTEMS: Positive for problem with the left eye. He had some vein problems in the past. He is weak in all 4 extremities. He has tremor. He has a problem with the testicles in the past. He has body aches to some extent. He is on Wellbutrin and multiple medications like gabapentin and lorazepam. It is not clear how long and why he is on that. A 14-point review of systems was otherwise noncontributory, but it was carried out. PAST MEDICAL HISTORY: Positive for neuropathy, but further information is not available. FAMILY HISTORY: Unremarkable. SOCIAL HISTORY: He does not abuse alcohol. PHYSICAL EXAMINATION: The patient's exam indicates he is alert, responsive, able to follow simple and complex commands. His speech, concentration, fund of knowledge and memory is at his baseline. Cranial nerve examination II-XII does not appear to be showing any definite abnormality. He is weak in all 4 extremities, including his upper extremities. His position sense is intact, but he has reflexes that I cannot elicit in the lower extremities. There is no meningeal sign. There is no carotid bruit. His vision and hearing looks adequate. His cardiac and respiratory examination is unremarkable. He has no edema, cyanosis or jaundice. He is very well-built individual. His blood pressure is 143/89, respirations 18 [place] pulse [place] 70[place] [address] CONSULTATION Name: AB EASON Room: [address] IN M.R.#: [id number] Admission: 12/05/20 Attend Phys: Tavo Ellis Discharge: Date of : 44 Report #: [id number] LABORATORY DATA: Indicated normal white count. He appears to have some workup in the past including a B12 level, he does not know why it was done. I reviewed his record and this patient was seen by Dr. Mcfadden and even by me at one time and his MRI at that time has demonstrated pretty extensive changes. There were all chronic. ASSESSMENT AND PLAN: It looks like the patient's problem is chronic. It is going on for a long time. He has pretty extensive changes on the MRI, which are chronic which probably is contributing to his symptoms. I will do an MRI of the C-spine to see if we can find some changes there. He has a known neuropathy and he had some workup done in the past. We will not repeat that. His CRP today is normal. He has YULY and rheumatoid factor in the past, which was also unremarkable. I will await his repeat MRI to see if there is an interval change or we can find something in his cervical spine to explain his symptoms. Otherwise, I think we will proceed with an LP on the patient and he does need an EMG and he has been told to do it as outpatient, even in 2019 I told him that he needs to get that done. MD KURT Sheppard/KATINA/FERMIN By: 1438 2220Steve Glaser MD /nt
[~2020-12-05 11:44] MED LIST changes: -PROZAC 20 MG20 MG PO
[2020-12-05 11:52] VITALS: BP 124/84
[2020-12-05 12:19] LABS: ABSOLUTE BASOPHILS 0.1 thou/uL (0.0-0.2); ABSOLUTE EOSINOPHILS 0.2 thou/uL (0.0-0.7); ABSOLUTE LYMPHOCYTES 1.9 thou/uL (0.8-5.3); ABSOLUTE MONOCYTES 0.6 thou/uL (0.0-1.2); ABSOLUTE NEUTROPHILS 2.3 thou/uL (1.6-8.1); BASOPHILS 1.3 %; EOSINOPHILS 4.3 %; HEMATOCRIT 41.5 % (42.0-52.0); HEMOGLOBIN 13.7 gm/dL (14.0-18.0); LYMPHOCYTES 38.1 %; MCH 29.2 pg (26.0-34.0); MCV 88.6 fL (80.0-100.0); MONOCYTES 11.8 %; MPV 6.4 fl. (7.2-11.1); NUCLEATED RBCS 0 /100WBC; PLATELET COUNT* 206 thou/uL (150-400); POLYS 44.5 %; RBC 4.68 mil/uL (4.50-6.00); RDW-CV 14.3 % (10.5-14.5); WBC 5.1 thou/uL (4.0-11.0)
[2020-12-05 12:31] LABS: CALCIUM 9.2 mg/dL (8.5-10.1); CREATININE 1.2 mg/dL (0.6-1.3); POTASSIUM 4.1 mmol/L (3.5-5.1)
[2020-12-05 12:41] LABS: ALBUMIN 3.4 g/dL (3.4-5.0); TOTAL BILIRUBIN 0.5 mg/dL (<0.1-1.0)
[2020-12-05 12:48] LABS: APTT 27.9 Seconds (25.0-31.3); PROTIME 10.8 Seconds (9.20-11.50)
[2020-12-05 13:02] LABS: URINE BILIRUBIN NEGATIVE (Negative); URINE BLOOD NEGATIVE (Negative); URINE CLARITY CLEAR; URINE COLOR YELLOW; URINE GLUCOSE-RANDOM NEGATIVE (Negative); URINE KETONES NEGATIVE (Negative); URINE LEUKOCYTES-REFLEX NEGATIVE (Negative); URINE NITRITE-REFLEX NEGATIVE (Negative); URINE PROTEIN NEGATIVE (Negative); URINE UROBILINOGEN 0.2 E.U./dl (0.2-1.0)
--- NOTE | 2020-12-05 15:40 | NUR ---
PATIENT WENT TO INTERVENTIONAL RADIOLOGY FOR LUMBAR PUNCTURE
--- NOTE | 2020-12-05 15:50 | EKG ---
[place] [address] ELECTROCARDIOGRAM REPORT Name: AB EASON Room: [place] [address] ADM IN [facility].#: [id number] Admission: 12/05/20 Attend Phys: Quan Hauser Discharge: Date of : 44 Date of Service: 12/05/20 1210 Report #: [id number] THIS REPORT FOR: //name// [facility] ED Test Date: 2020-12-05 Test Time: 12:10:42 Pat Name: AB EASON Department: Room: [facility] Gender: M Teasel Gig Operator: ANGELA : 1940 Requested By: Jl Santa Order Number: [id number] MD: Cain Schaeffer Measurements Intervals [place] Rate: 74 P: 45 [place]: 170 QRS: -32 QRSD: 91 T: 37 QT: 407 QTc: 452 Interpretive Statements Sinus rhythm Compared to ECG 05/11/2020 16:48:18 no change Electronically Signed On 12-05-2020 15:49:54 CDT by Cain Schaeffer [email or web address] <ELECTRONICALLY SIGNED> By: Cain Schaeffer MD, [facility] 12/05/20 1549 1210 1210 Cain Schaeffer MD, [facility] /EPI
[2020-12-05 16:09] LABS: CSF GLUCOSE 51 mg/dl (40-70); CSF PROTEIN 75.2 mg/dl (15-45)
--- NOTE | 2020-12-05 16:30 | NUR ---
PATIENT IS NOW IN MRI
[2020-12-05 16:46] LABS: CSF CLARITY CLEAR; CSF COLOR COLORLESS; CSF RBC 6 /mm3; CSF WBC 2 /mm3 (0-10); VOLUME 11.5 ml
[2020-12-05 17:58] VITALS: BP 141/65
--- NOTE | 2020-12-05 18:24 | NUR ---
PT ORIENTED TO ROOM AND UNIT, BEDF LOW AND LOCKED, SIDE RAILS UPX3, CALL LIGHT IN REACH, TELE APPLIED. WILL CONTINUE TO ASSESS.
--- NOTE | 2020-12-05 18:57 | NUR ---
PT SIGNED MEDICAR RIGHT AMD FALL RISK CONTRACT.
[2020-12-05 19:28] LABS: CALCIUM 9.5 mg/dL (8.5-10.1); CREATININE 1.1 mg/dL (0.6-1.3); POTASSIUM 4.5 mmol/L (3.5-5.1)
[2020-12-05 19:31] LABS: MAGNESIUM 2.5 mg/dL (1.8-2.4); PHOSPHORUS* 3.5 mg/dL (2.5-4.9)
[2020-12-06] VITALS: BP 126/74
[2020-12-06 04:00] VITALS: BP 130/85
[2020-12-06 07:51] VITALS: BP 131/64
[2020-12-06 09:57] LABS: HEMOGLOBIN 14.5 gm/dL (14.0-18.0); MCH 29.1 pg (26.0-34.0); MCHC 32.9 g/dL (28.0-37.0); MCV 88.5 fL (80.0-100.0); MPV 6.7 fl. (7.2-11.1); RBC 4.97 mil/uL (4.50-6.00); WBC 5.2 thou/uL (4.0-11.0)
[2020-12-06 10:03] LABS: CALCIUM 9.5 mg/dL (8.5-10.1); CREATININE 1.2 mg/dL (0.6-1.3); POTASSIUM 4.5 mmol/L (3.5-5.1)
--- NOTE | 2020-12-06 11:34 | 2DMMODE ---
[place] [address] 2 D/M-MODE ECHOCARDIOGRAM Name: AB EASON Room: [address] IN [place]#: [id number] Admission: 12/05/20 Attend Phys: Quan Hauser Discharge: Date of : 44 Date of Service: 12/06/20 1134 Report #: [id number] THIS REPORT FOR: cc: Butch Milligan,Butch Stephenson,Cain Wallace MD [facility] ~ APPROVED REPORT Study performed: 12/06/2020 10:05:11 EXAM: Comprehensive 2D, Doppler, and color-flow Echocardiogram Patient Location: In-Patient Room #: [facility] Status: routine BSA: 2.07 HR: 81 bpm BP: 131/64 mmHg Rhythm: NSR Other Information Study Quality: Good Indications CVA/TIA Echo Enhancing Agent Indication: Rule out Shunt Agent(s) / Amount(s) Used: Agitated Saline 10 cc 2D Dimensions IVSd: 13.40 (7-11mm) LVOT Diam: 19.43 (18-24mm) LVDd: 44.78 mm PWd: 9.92 (7-11mm) Ascending Ao: 31.29 (22-36mm) LVDs: 25.16 (25-40mm) Aortic Root: 31.04 mm Volumes Left Atrial Volume (Systole) LA ESV Index: 19.70 mL/m2 Aortic Valve AoV Peak Dimitri.: 1.85 m/s AO Peak Gr.: 13.71 mmHg LVOT Max P.16 mmHg AO Mean Gr.: 6.61 mmHg LVOT Mean P.29 [place] [address] 2 D/M-MODE ECHOCARDIOGRAM Name: AB EASON Room: [address] IN .R.#: [id number] Admission: 12/05/20 Attend Phys: Quan Hauser Discharge: Date of : 44 Date of Service: 12/06/20 1134 Report #: [id number] LVOT Max V: 1.34 m/s AO V2 VTI: 29.77 cm LVOT Mean V: 0.83 m/s MARAH (VTI): 2.31 cm2 LVOT V1 VTI: 23.25 cm Mitral Valve E/A Ratio: 0.71 MV Decel. Time: 319.08 ms MV E Max Dimitri.: 0.50 m/s MV PHT: 92.53 ms MVA (PHT): 2.38 cm2 TDI E/Lateral E': 7.14 E/Medial E': 7.14 Medial E' Dimitri.: 0.07 m/s Lateral E' Dimitri.: 0.07 m/s Pulmonary Valve PV Peak Dimitri.: 1.88 m/s PV Peak Gr.: 14.13 mmHg Tricuspid Valve RAP Estimate: 5.00 mmHg TR Peak Gr.: 21.42 mmHg RVSP: 26.00 mmHg PA Pressure: 26.00 mmHg Left Ventricle The left ventricle is normal size. There is normal LV segmental wall motion. There is normal left ventricular wall thickness. Left ventricular systolic function is normal. The left ventricular ejection fraction is within the normal range. LVEF is 60-65%. Grade I - abnormal relaxation pattern. Right Ventricle The right ventricle is normal size. The right ventricular systolic function is normal. Atria The left atrium size is normal. The interatrial septum is intact with no evidence for an atrial septal defect. The right atrium size is normal. Aortic Valve Mild aortic valve sclerosis. Mild aortic regurgitation. There is no aortic valvular stenosis. Mitral Valve The mitral valve is normal in structure. [place] [address] 2 D/M-MODE ECHOCARDIOGRAM Name: AB EASON Room: [address] IN ..#: [id number] Admission: 12/05/20 Attend Phys: Quan Hauser Discharge: Date of : 44 Date of Service: 12/06/20 1134 Report #: [id number] No evidence of mitral valve stenosis. Tricuspid Valve The tricuspid valve is normal in structure. Mild tricuspid regurgitation. Unable to assess PA pressure. Pulmonic Valve The pulmonary valve is normal in structure. Trace pulmonic regurgitation. Great Vessels The aortic root is normal in size. IVC is normal in size and collapses >50% with inspiration. Pericardium There is no pericardial effusion. <Conclusion> LVEF is 60-65%. Mild aortic valve sclerosis. Mild aortic regurgitation. Mild mitral regurgitation. The interatrial septum is intact with no evidence for an atrial septal defect. <ELECTRONICALLY SIGNED> By: Cain Schaeffer MD, FACC 12/06/20 1134 1134 1134 Cain Schaeffer MD, FACC /INF
[2020-12-06 11:56] VITALS: BP 107/77
--- NOTE | 2020-12-06 14:26 | NUR ---
CM spoke with Pt's . Pt normally independent. No DME. No hx of HH or SNF. Confirmed CVA. ARU consulted. Neuro following. Therapies ordered. CM following for dispo
--- NOTE | 2020-12-06 18:41 | NUR ---
PT REMAINS ALERT AND ORIENTED. AT BEDSIDE. FALL PRECAUTIONS REMAIN IN PLACE. WILL CONTINUE TO MONITOR.
[2020-12-06 20:00] VITALS: BP 131/79
[2020-12-07 00:15] VITALS: BP 120/73
[2020-12-07 04:12] VITALS: BP 144/81
[2020-12-07 05:11] LABS: HEMATOCRIT 39.2 % (42.0-52.0); HEMOGLOBIN 12.7 gm/dL (14.0-18.0); MCHC 32.5 g/dL (28.0-37.0); MCV 89.4 fL (80.0-100.0); MPV 6.9 fl. (7.2-11.1); RBC 4.39 mil/uL (4.50-6.00); RDW-CV 14.4 % (10.5-14.5); WBC 4.2 thou/uL (4.0-11.0)
[2020-12-07 05:40] LABS: ALBUMIN 2.8 g/dL (3.4-5.0); ALKALINE PHOSPHATASE 72 U/L (46-116); ANION GAP 7 mmol/L (7-16); BUN 22 mg/dL (7-18); CALCIUM 8.1 mg/dL (8.5-10.1); CHLORIDE 108 mmol/L (98-107); CHOLESTEROL 150 mg/dL (<200); CO2 28 mmol/L (21-32); CREATININE 1.3 mg/dL (0.6-1.3); GLUCOSE 87 mg/dL (70-99); HDL CHOLESTEROL 42 mg/dL (>40); LDL CHOLESTEROL 94 mg/dL (<100); SGOT 18 U/L (15-37); SGPT 27 U/L (30-65); SODIUM 143 mmol/L (136-145); TC:HDL 3.6 Ratio (Not establshd); TOTAL BILIRUBIN 0.4 mg/dL (<0.1-1.0); TOTAL PROTEIN 5.8 g/dL (6.4-8.2); TRIGLYCERIDE 70 mg/dL (<150); VLDL 14 mg/dL (<40)
[2020-12-07 05:53] LABS: SERUM ASSESSMENT CLEAR
--- NOTE | 2020-12-07 07:49 | NUR ---
ASSUMED PT CARE AT APPROX 1930. PT IS AWAKE AND ORIENTED X4. PT IS NOT IN DISTRESS, NO DESATURATIONS NOTED ON ROOM AIR. PT IS TRACING SR ON THE REGIONAL EDUCATION MANAGER. NO ACUTE CHANGES THIS SHIFT. CALL LIGHT WITHIN REACH. HIGH FALL PRECAUTIONS IN PLACE. HOURLY ROUNDING DONE FOR PT SAFETY.
[2020-12-07 08:58] VITALS: BP 116/78
[2020-12-07] MEDS ORDERED: PLAVIX 75 MG TA75 M1 PO (11:23)
[2020-12-07] MEDS ORDERED: LIPITOR 40 MG T40 M1 PO (11:23)
[2020-12-07 11:52] VITALS: BP 116/78
--- NOTE | 2020-12-07 12:45 | NUR ---
Reviewed discharge teaching with patient and ; verbalized understanding. Discontinued IV and teletypesetter monitor. Pt discharged from unit per WC.
[2020-12-08 05:36] LABS: GLYCOHEMOGLOBIN (HGB A1C) 5.8 % (4.8-5.6)
== END 2020-12-07 12:45 | disposition home or self-care (01) | DRG 65 ==
LOC: M.ERS 11:44 → M.2W 14:05 → M.TBA-ER 14:05 → M.2W 17:59
PROVIDERS: Emergency Medicine Emergency Medical Services; ADMIT Internal Medicine; ATTEND Internal Medicine
PROC: 00JU3ZZ Inspection of Spinal Canal, Percutaneous Approach (ICD-10-PCS; principal; 2020-12-05)
DX: I63.89 Other cerebral infarction (principal); G61.0 Guillain-Barre syndrome; G61.81 Chronic inflammatory demyelinating polyneuritis; K21.9 Gastro-esophageal reflux disease without esophagitis; D51.9 Vitamin B12 deficiency anemia, unspecified; Z96.653 Presence of artificial knee joint, bilateral; Z96.1 Presence of intraocular lens; Z20.822 Contact with and (suspected) exposure to COVID-19; Z79.82 Long term (current) use of aspirin; Z98.41 Cataract extraction status, right eye; Z79.899 Other long term (current) drug therapy

== ENCOUNTER 2020-12-19 18:28 | Emergency (ER) | payer MEDICARE ==
[~2020-12-19] VITALS: Ht 177.8 cm; Wt 88.5 kg
[~2020-12-19 18:28] MED LIST changes: +LIPITOR 40 MG T40 M1 PO; +PLAVIX 75 MG TA75 M1 PO
[2020-12-19] MEDS ORDERED: NEURONTIN 400M400 M2 PO (18:41)
[2020-12-19] MEDS ORDERED: ATIVAN0.5 M1 PO (18:41)
[2020-12-19] MEDS ORDERED: VITAMIN C500 M1 PO (18:42)
[2020-12-19 19:35] VITALS: BP 145/65
== END 2020-12-19 19:35 | disposition home or self-care (01) ==
LOC: M.ERS 18:28
DX: M25.512 Pain in left shoulder (principal); R07.81 Pleurodynia; K21.9 Gastro-esophageal reflux disease without esophagitis; Z77.22 Contact with and (suspected) exposure to environmental tobacco smoke (acute) (chronic)

== ENCOUNTER → 2020-12-23 | Outpatient (CLI) | payer MEDICARE ==
[~2020-12-23] MED LIST changes: +ATIVAN0.5 M1 PO; +NEURONTIN 400M400 M2 PO; +VITAMIN C500 M1 PO
== END ==
LOC: M.ULTRA 11:30
PROVIDERS: ATTEND Specialist
DX: E04.1 Nontoxic single thyroid nodule (principal)

== ENCOUNTER → 2020-12-27 | Outpatient (CLI) | payer MEDICARE | END | disposition home or self-care (01) | LOC: M.ULTRA 08:30 | PROVIDERS: ATTEND Family Medicine | DX: E04.1 Nontoxic single thyroid nodule (principal); K21.9 Gastro-esophageal reflux disease without esophagitis; F32.9 Major depressive disorder, single episode, unspecified; Z98.890 Other specified postprocedural states; Z79.899 Other long term (current) drug therapy; Z96.653 Presence of artificial knee joint, bilateral; Z86.73 Personal history of transient ischemic attack (TIA), and cerebral infarction without residual deficits; Z87.442 Personal history of urinary calculi ==

== ENCOUNTER → 2020-12-31 | Outpatient (CLI) | payer MEDICARE | LOC: M.RAD 09:00 | PROVIDERS: ATTEND Nurse Practitioner | DX: M81.0 Age-related osteoporosis without current pathological fracture (principal); M85.822 Other specified disorders of bone density and structure, left upper arm; M85.80 Other specified disorders of bone density and structure, unspecified site; E04.1 Nontoxic single thyroid nodule ==

== ENCOUNTER 2021-04-04 21:32 | Emergency (ER) | payer MEDICARE ==
[~2021-04-04] VITALS: Ht 177.8 cm; Wt 86.2 kg
[2021-04-04] MEDS ORDERED: AMOXICILLIN (21:46)
[2021-04-05 00:30] VITALS: BP 140/82
--- NOTE | 2021-04-05 11:10 | EKG ---
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: [facility] : 1940 Requested By: Pippa English Order Number: [id number] MD: Getachew Jain Measurements Intervals [place] Rate: 118 P: 48 [place]: 133 QRS: 40 QRSD: 71 T: 8 QT: 314 QTc: 441 Interpretive Statements Sinus tachycardia Compared to ECG 12/05/2020 12:10:42 Sinus rate has increased Electronically Signed On 04-05-2021 11:10:38 CDT by Getachew Jain [email or web address] <ELECTRONICALLY SIGNED> By: Getachew Jain MD, [facility] 04/05/21 1110 Getachew Jain MD, FAC /EPI
== END 2021-04-05 00:30 | disposition home or self-care (01) ==
LOC: M.ERS 21:32
DX: M25.561 Pain in right knee (principal); M25.511 Pain in right shoulder; K21.9 Gastro-esophageal reflux disease without esophagitis; Z79.899 Other long term (current) drug therapy; Z79.82 Long term (current) use of aspirin; W10.8XXA Fall (on) (from) other stairs and steps, initial encounter; Y93.89 Activity, other specified; Y92.89 Other specified places as the place of occurrence of the external cause; Y99.8 Other external cause status